=== PATIENT | male | born 2000 | race Caucasian/White ===

== ENCOUNTER 2020-12-15 16:35 | Emergency (ER) | payer OTHER, BC ==
[2020-12-15] MEDS ORDERED: Rabies Vaccine Human 2.5 UNITS VIAL IM ONE (18:45)
== END 2020-12-15 20:23 | disposition home or self-care (01) ==
LOC: ERS 16:35
DX: S00.271A Other superficial bite of right eyelid and periocular area, initial encounter (principal); S00.571A Other superficial bite of lip, initial encounter; W54.0XXA Bitten by dog, initial encounter
CPT/HCPCS: 90376; 90471; 90675; 96372

== ENCOUNTER 2020-12-18 15:48 | Emergency (ER) | payer BC ==
[2020-12-18] MEDS ORDERED: Rabies Vaccine Human 2.5 UNITS VIAL IM ONE (16:15)
== END 2020-12-18 17:21 ==
LOC: ER/OP 15:48
DX: Z23 Encounter for immunization (principal)
CPT/HCPCS: 90471; 90675

== ENCOUNTER 2020-12-22 11:59 | Emergency (ER) | payer BC ==
[2020-12-22] MEDS ORDERED: Rabies Vaccine Human 2.5 UNITS VIAL ONE (12:31)
[2020-12-22] MEDS ORDERED: Rabies Vaccine Human 2.5 UNITS VIAL IM ONE (15:15)
== END 2020-12-22 13:47 | disposition home or self-care (01) ==
LOC: ERS 11:59
DX: Z23 Encounter for immunization (principal)
CPT/HCPCS: 90471; 90675

== ENCOUNTER 2020-12-28 20:31 | Emergency (ER) | payer BC ==
[2020-12-28] MEDS ORDERED: Rabies Vaccine Human 2.5 UNITS VIAL IM ONE (21:45)
== END 2020-12-28 22:21 | disposition home or self-care (01) ==
LOC: ER/OP 20:31
DX: Z23 Encounter for immunization (principal)
CPT/HCPCS: 90471; 90675